=== PATIENT | female | born 2000 | race Caucasian/White ===

== ENCOUNTER 2024-12-07 20:31 | Emergency (ER) | payer BC | END 2024-12-07 20:41 | disposition still patient (30) | LOC: MW.ED 20:31 | DX: O26.852 Spotting complicating pregnancy, second trimester (principal); O99.891 Other specified diseases and conditions complicating pregnancy; R10.9 Unspecified abdominal pain; Z3A.26 26 weeks gestation of pregnancy | CPT/HCPCS: 99283 ==